=== PATIENT | male | born 1960 | race Caucasian/White ===

== ENCOUNTER → 2017-01-01 | Outpatient (CLI) | payer OTHER | END | disposition home or self-care (01) | LOC: CVU 06:31 | PROVIDERS: ATTEND Nurse Practitioner | DX: M19.071 Primary osteoarthritis, right ankle and foot (principal); Z86.718 Personal history of other venous thrombosis and embolism; F17.200 Nicotine dependence, unspecified, uncomplicated | CPT/HCPCS: 93922; 93926; 93971 ==

== ENCOUNTER → 2017-01-21 | Outpatient (CLI) | payer OTHER | END | disposition home or self-care (01) | LOC: WOUND 13:48 | PROVIDERS: ATTEND Nurse Practitioner Family | DX: M86.371 Chronic multifocal osteomyelitis, right ankle and foot (principal); I10 Essential (primary) hypertension; J44.9 Chronic obstructive pulmonary disease, unspecified; I73.9 Peripheral vascular disease, unspecified; F17.298 Nicotine dependence, other tobacco product, with other nicotine-induced disorders | CPT/HCPCS: 99214 ==

== ENCOUNTER 2017-02-07 11:38 | Inpatient (IN) | payer OTHER ==
[2017-02-06 15:02] LABS: ASPARTATE AMINO TRANSFERASE 16 U/L (15-37); BLOOD UREA NITROGEN 18 mg/dL (7-18)
[~2017-02-07] VITALS: Ht 175.3 cm; Wt 76.5 kg
[~2017-02-07 11:38] MED LIST: ASPI-496 PO; BUPIVACAINE/PF 0.5% ONE; CLOP75TA22 PO; GUAN1TAB9 PO; LISI-170 PO
[2017-02-07] MEDS ORDERED: LACTATED RINGERS 1,000 ML IV SCH (11:57)
[2017-02-07] MEDS ORDERED: FENTANYL PF 250 MCG/5ML ONE (12:52)
[2017-02-07] MEDS ORDERED: MIDAZOLAM 1 MG/ML, 2ML ONE (12:52)
[2017-02-07] MEDS ORDERED: ALBUTEROL SULFATE 200 PUFFS/8.5 GR INH ONE (13:31)
[2017-02-07] MEDS ORDERED: CEFAZOLIN 1,000 MG ONE (13:31)
[2017-02-07] MEDS ORDERED: EPHEDRINE 50 MG/ML, 1ML ONE (13:31)
[2017-02-07] MEDS ORDERED: ONDANSETRON 2MG/ML, 2ML ONE (13:31)
[2017-02-07] MEDS ORDERED: PROPOFOL 10 MG/ML, 20ML ONE (13:31)
[2017-02-07] MEDS ORDERED: DEXAMETHASONE 4 MG/ML, 5ML ONE (13:31)
[2017-02-07] MEDS ORDERED: HYDROmorphone 1 MG/ML, 1ML IV PRN ×2 (14:00→16:30)
[2017-02-07] MEDS ORDERED: PROMETHAZINE 25 MG/ML, 1ML IV PRN (14:00)
[2017-02-07] MEDS ORDERED: OXYcodone 5 MG/5 ML ORAL.SOL UDC PO PRN (14:00)
[2017-02-07] MEDS ORDERED: MEPERIDINE/PF 25MG/0.5ML IVPush PRN (14:00)
[2017-02-07] MEDS ORDERED: LABETALOL 5MG/ML, 20ML IV PRN (14:00)
[2017-02-07] MEDS ORDERED: ONDANSETRON 2MG/ML, 2ML IVPush PRN (14:00)
[2017-02-07] MEDS ORDERED: ALBUTEROL/IPRATROPIUM 2.5MG/0.5MG, 3 ML NPPB PRN (14:00)
[2017-02-07] MEDS ORDERED: FENTANYL PF 100 MCG/2ML IV PRN (14:00)
[2017-02-07] MEDS ORDERED: MIDAZOLAM 1 MG/ML, 2ML IV PRN (14:00)
[2017-02-07] MEDS ORDERED: ACETAMINOPHEN 325 MG TABLET PO PRN (14:00)
[2017-02-07] MEDS ORDERED: hydrALAzine 20 MG/ML, 1ML IV PRN (14:00)
[2017-02-07] MEDS ORDERED: FENTANYL PF 100 MCG/2ML ONE (15:11)
[2017-02-07] MEDS ORDERED: OXYcodone 5 MG/5 ML ORAL.SOL UDC ONE (15:11)
[2017-02-07] MEDS ORDERED: ACETAMINOPHEN 650 MG/20.3 ML UDC ONE (15:11)
[2017-02-07] MEDS ORDERED: ACETAMINOPHEN 325 MG TABLET ONE (15:11)
[2017-02-07] MEDS ORDERED: ONDANSETRON 2MG/ML, 2ML IV PRN (16:30)
[2017-02-07] MEDS ORDERED: CEFAZOLIN PMX 2GM/100ML 100 ML IVPB SCH (16:30)
[2017-02-07] MEDS ORDERED: DIPHENHYDRAMINE 25 MG CAPSULE PO PRN (16:30)
[2017-02-07] MEDS: CEFAZOLIN PMX 2GM/50ML 50 ML IVPB SCH (16:30)
[2017-02-07] MEDS ORDERED: HORS300C PO (16:31)
[2017-02-07] MEDS ORDERED: SHAR500C PO (16:32)
[2017-02-07] MEDS: KETOROLAC 30 MG/1 ML IV SCH (16:55)
[2017-02-07] MEDS: SODIUM CHLORIDE 0.9% 1,000 ML IV SCH (16:55)
[2017-02-07] MEDS: SODIUM CHLORIDE FLUSH 10ML SYR IVF SCH (20:35)
[2017-02-07] MEDS: DIAZEPAM 5 MG TABLET PO PRN (20:38)
[2017-02-07 20:41] VITALS: BP 114/87
[2017-02-08] MEDS: CEFAZOLIN PMX 2GM/50ML 50 ML IVPB SCH (00:24)
[2017-02-08] MEDS: DIAZEPAM 5 MG TABLET PO PRN ×2 (00:24→04:56)
[2017-02-08] MEDS: KETOROLAC 30 MG/1 ML IV SCH ×2 (00:24→08:47)
[2017-02-08 00:26] VITALS: BP 135/83
[2017-02-08] MEDS: SODIUM CHLORIDE 0.9% 1,000 ML IV SCH ×2 (02:29→12:17)
[2017-02-08 04:00] VITALS: BP 118/74
[2017-02-08] MEDS: OXYcodone/APAP 5/325MG TABLET PO PRN ×2 (04:56→15:52)
[2017-02-08] MEDS ORDERED: OXYC-302 PO (06:22)
[2017-02-08 07:55] VITALS: BP 136/80
[2017-02-08] MEDS: SODIUM CHLORIDE FLUSH 10ML SYR IVF SCH ×2 (08:44→21:00)
[2017-02-08] MEDS: CLOPIDOGREL 75 MG TABLET PO SCH (08:47)
[2017-02-08] MEDS: LISINOPRIL 20 MG TABLET PO SCH (08:47)
[2017-02-08 12:48] VITALS: BP 142/71
[2017-02-08 19:29] VITALS: BP 136/73
[2017-02-09] MEDS: SODIUM CHLORIDE 0.9% 1,000 ML IV SCH ×3 (00:12→18:16)
[2017-02-09] MEDS: OXYcodone/APAP 5/325MG TABLET PO PRN ×5 (00:30→19:29)
[2017-02-09 02:50] VITALS: BP 157/89
[2017-02-09 06:42] VITALS: BP 142/74
[2017-02-09] MEDS: SODIUM CHLORIDE FLUSH 10ML SYR IVF SCH ×2 (08:43→19:29)
[2017-02-09] MEDS: DIAZEPAM 5 MG TABLET PO PRN ×2 (08:43→21:18)
[2017-02-09] MEDS: LISINOPRIL 20 MG TABLET PO SCH (08:43)
[2017-02-09] MEDS: CLOPIDOGREL 75 MG TABLET PO SCH (08:43)
[2017-02-09 12:28] VITALS: BP 173/81
[2017-02-09] MEDS: NICOTINE 21 MG/24 HR PATCH.TD24 TD SCH (16:01)
[2017-02-09 21:29] VITALS: BP 155/85
[2017-02-10] MEDS: OXYcodone/APAP 5/325MG TABLET PO PRN ×4 (00:21→12:51)
[2017-02-10 02:44] VITALS: BP 153/73
[2017-02-10] MEDS: SODIUM CHLORIDE 0.9% 1,000 ML IV SCH (04:29)
[2017-02-10 07:32] VITALS: BP 157/87
[2017-02-10] MEDS: LISINOPRIL 20 MG TABLET PO SCH (09:14)
[2017-02-10] MEDS: CLOPIDOGREL 75 MG TABLET PO SCH (09:15)
[2017-02-10] MEDS: SODIUM CHLORIDE FLUSH 10ML SYR IVF SCH (09:15)
[2017-02-10] MEDS ORDERED: BISACODYL 10 MG SUPP PR PRN (10:00)
[2017-02-10] MEDS ORDERED: POLYETHYLENE GLYCOL 17 GM PACKET PO SCH (10:00)
[2017-02-10] MEDS ORDERED: MAGNESIUM HYDROXIDE 8%, 30ML UDC PO PRN (10:00)
[2017-02-10] MEDS ORDERED: ONDANSETRON 2MG/ML, 2ML IVPush PRN (10:30)
[2017-02-10] MEDS ORDERED: METOCLOPRAMIDE 5 MG/ML, 2ML IVPush PRN (10:30)
[2017-02-10] MEDS: NICOTINE 21 MG/24 HR PATCH.TD24 TD SCH (12:19)
[2017-02-10 12:47] VITALS: BP 157/87
[2017-02-10] MEDS ORDERED: DOCUSATE 100 MG CAPSULE PO SCH (21:00)
== END 2017-02-10 14:23 | disposition home or self-care (01) | DRG 476 ==
LOC: ORIP 11:38 → 4NOR 16:06 → DCLOUNGE 02-10 13:16
PROVIDERS: ADMIT Orthopaedic Surgery; ATTEND Orthopaedic Surgery
PROC: 0Y6H0Z3 Detachment at Right Lower Leg, Low, Open Approach (ICD-10-PCS; principal; 2017-02-07 13:45)
DX: T84.53XA Infection and inflammatory reaction due to internal right knee prosthesis, initial encounter (principal); F17.200 Nicotine dependence, unspecified, uncomplicated; Z88.8 Allergy status to other drugs, medicaments and biological substances
CPT/HCPCS: 36415; 80053; 88307; J0690; J1100; J1885; J2250; J2405; J2704; J3010; J3490; J7030; J7120

== ENCOUNTER → 2017-04-08 | Outpatient (CLI) | payer OTHER ==
[~2017-04-08] MED LIST changes: -BUPIVACAINE/PF 0.5% ONE; +HORS300C PO; +OXYC-302 PO; +SHAR500C PO
== END | disposition home or self-care (01) ==
LOC: WOUND 09:06
PROVIDERS: ATTEND Internal Medicine
DX: T81.31XD Disruption of external operation (surgical) wound, not elsewhere classified, subsequent encounter (principal); J44.9 Chronic obstructive pulmonary disease, unspecified; I10 Essential (primary) hypertension; I73.9 Peripheral vascular disease, unspecified; M86.371 Chronic multifocal osteomyelitis, right ankle and foot; F17.210 Nicotine dependence, cigarettes, uncomplicated; Z89.511 Acquired absence of right leg below knee; Y83.8 Other surgical procedures as the cause of abnormal reaction of the patient, or of later complication, without mention of misadventure at the time of the procedure
CPT/HCPCS: 11042; 99215